=== PATIENT | female | born 1995 | race Caucasian/White ===

== ENCOUNTER 2017-02-07 07:08 | Emergency (ER) | payer OTHER ==
--- NOTE | 2017-02-07 08:01 | RAD ---
HISTORY: Trauma, right thumb injury COMPARISONS: None relevant available at the time of dictation VIEWS: 3, Frontal, lateral, and oblique views of the first digit of the right hand FINDINGS: BONE DENSITY: Normal. BONES: There is no displaced fracture. JOINTS: There is no arthropathy. ALIGNMENT: There is no dislocation. SOFT TISSUES: Unremarkable. OTHER FINDINGS: None. IMPRESSION: NO ACUTE OSSEOUS INJURY. IF SYMPTOMS PERSIST, RECOMMEND REPEAT IMAGING.
--- NOTE | 2017-02-07 08:09 | UC ---
Caitlyn Mosher Thomas, scribed for Kellee Rivera DO on 02/07/17 at 0729 . Upper Extremity HPI - HPI Summary HPI Summary: The pt is a 22 y/o F presenting to [facility] [place] c/o right thumb pain s/p a fall two days ago in which she slipped and fell on her outstretched right hand. The pain had onset immediately after her fall. The pt rates the pain 7/10 at its worst. The pain is aggravated by flexion and is alleviated by rest. There is no pain when the finger is held still. 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 Pt denies elbow pain, forearm pain, wrist pain, pain in any other fingers, F/C/S, CP, abd pain, belly pain, or rashes. She has a prior fracture in her left hand from a fall. - History of Current Complaint Stated Complaint: THUMB INJURY Hx Obtained From: Patient Hx Last Menstrual Period: 01/13/17 Onset/Duration: Sudden Onset, Lasting Days - s/p a fall two days ago, Still Present Severity Currently: Moderate Pain Intensity: 7 Pain Scale Used: 0-10 Numeric Location Of Pain: Is Discrete @ - R thumb Aggravating Factor(s): Flexion Alleviating Factor(s): Rest Associated Signs And Symptoms: Positive: Negative Related History: Similar Episode/Dx As - a left thumb fracture after an earlier fall - Allergies/Home Medications Allergies/Adverse Reactions: Allergies Allergy/AdvReac Type Severity Reaction Status Date / Time No Known Allergies Allergy Verified 02/07/17 07:18 Home Medications: Home Medications Cetirizine* [ZyrTEC 10 MG TAB*] 10 mg PO DAILY 02/07/17 [History Confirmed 02/07] Montelukast Sodium TAB* [Singulair 10 MG TAB*] 10 mg PO DAILY 02/07/17 [History Confirmed 02/07/17] PMH/Surg Hx/FS Hx/Imm Hx Previously Healthy: No - Left thumb fracture Other Cancer History: Leukemia (diagnosed 04/2016) - Surgical History Surgical History: None - Family History Known Family History: Positive: Diabetes - Social History Alcohol Use: Occasionally Substance Use Type: None Smoking Status (MU): Never Smoked Tobacco Review of Systems Constitutional: Other - NEGATIVE: fever Musculoskeletal: Other: - Right thumb pain All Other Systems Reviewed And Are Negative: Yes Physical Exam Triage Information Reviewed: Yes Appearance: Well-Appearing, No Pain Distress, Well-Nourished Vital Signs: Initial Vital Signs Temp 98.4 F 02/07/17 07:12 Pulse 93 02/07/17 07:12 Resp 16 02/07/17 07:12 BP 104/80 02/07/17 07:12 Pulse Ox 100 02/07/17 07:12 Eyes: Positive: Conjunctiva Clear. Negative: Discharge ENT: Positive: Hearing grossly normal. Negative: Muffled/hoarse voice Neck exam: Normal Neck: Positive: Supple Respiratory: Positive: Lungs clear, Normal breath sounds, No respiratory distress, No accessory muscle use Cardiovascular: Positive: RRR, No Murmur Musculoskeletal: Positive: Other: - Tender to palpation on the first metacarpal and proximal phalanx on the right thumb. There is slight swelling over the MCP, distal first metacarpal, and proximal phalanx on the right thumb. Neurological: Positive: Alert, Muscle Tone Normal Psychological Exam: Normal Psychological: Positive: Age Appropriate Behavior Skin Exam: Normal Skin: Positive: Other - Warm, dry, normal color Diagnostics - Radiology XR Thumb Xray Interpretation: No Acute Changes - No acute osseous injury. If symptoms persist, follow up imaging is recommended. Radiology Interpretation Completed By: Radiologist Upper Extremity Course/Dx - Course Course Of Treatment: The pt is a 22 y/o F presenting to [facility] [place] c/o right thumb pain s/p a fall two days ago in which she slipped and fell on her outstretched right hand. The pain had onset immediately after her fall. The pt rates the pain 7/10 at its worst. The pain is aggravated by flexion and is alleviated by rest. There is no pain when the finger is held still. 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 Pt denies elbow pain, forearm pain, wrist pain, pain in any other fingers, F/C/S, CP, abd pain, belly pain, or rashes. She has a prior fracture in her left hand from a fall. Medications reviewed this visit. XR Thumb reveals thumb sprain. [facility] physician has reviewed this radiology report and agrees. Patient is diagnosed with right thumb sprain. A splint was applied to the thumb. Patient is stable and will be discharged home. Patient is agreeable to this plan. - Differential Dx/Diagnosis Provider Diagnoses: Right thumb sprain Discharge - Discharge Plan Condition: Stable Disposition: HOME Patient Education Materials: Splint Care (ED), Finger Sprain (ED) Additional Instructions: REMEMBER SPRAINS HEAL FASTER WITH EARLY AND GENTLE MOBILIZATION. WEAR THE SPINT FOR PROTECTION AND REST FOR LONG YOU FEEL THAT YOU NEED IT, BUT GET YOU THUMB OUT SEVERAL TIMES A DAY. MOVE IT MUCH YOU CAN IN YOUR PAIN FREE RANGE OF MOTION WHILE TAKING BIG BREATHES. IF YOU ARE NOT IMPROVING IN 5-7 DAYS, YOU SHOULD BE RE-EVALUATED FOR OCCULT OR HIDDEN FRACTURE. The documentation as recorded by the Caitlyn dempsey Thomas accurately reflects the service I personally performed and the decisions made by me, Kellee Rivera DO.
== END 2017-02-07 08:04 | disposition home or self-care (01) ==
LOC: UCEAST 07:08
DX: S63.601A Unspecified sprain of right thumb, initial encounter (principal); W01.10XA Fall on same level from slipping, tripping and stumbling with subsequent striking against unspecified object, initial encounter; Y92.9 Unspecified place or not applicable
CPT/HCPCS: 99211; G0463

== ENCOUNTER 2017-02-22 16:45 | Emergency (ER) | payer OTHER ==
--- NOTE | 2017-02-22 17:16 | ED ---
Progress - Progress Note Progress Note: fatigue, sore throat, clotting with menses---pt is worried about return of Leukemia Course/Dx - Diagnoses Provider Diagnoses: Fatigue
[2017-02-22 18:22] LABS: Hematocrit 42 % (35-47); Hemoglobin 13.9 g/dl (12.0-16.0); Mean Corpuscular HGB Conc 34 g/dl (31-36); Mean Corpuscular Hemoglobin 32 pg (27-31); Mean Corpuscular Volume 97 fL (80-97); Mean Platelet Volume 9 um3 (7.4-10.4); Red Blood Count 4.31 10^6/ul (4.0-5.4); Red Cell Distribution Width 13 % (10.5-15); White Blood Count 9.8 10^3/ul (3.5-10.8)
[2017-02-22 18:36] LABS: ALT 7 U/L (7-52); AST 12 U/L (13-39); Albumin 3.9 g/dL (3.2-5.2); Alkaline Phosphatase 59 U/L (34-104); Anion Gap 3 mmol/L (2-11); BUN/Creatinine Ratio 13.7 (8-20); Blood Urea Nitrogen 10 mg/dL (6-24); CO2 Carbon Dioxide 27 mmol/L (22-32); Calcium 8.9 mg/dL (8.6-10.3); Chloride 106 mmol/L (101-111); EGFR African American 129.4 (>60); EGFR Non-African American 100.6 (>60); Globulin 3.1 g/dL (2-4); Glucose 86 mg/dL (70-100); Potassium 4.5 mmol/L (3.5-5.0); Sodium 136 mmol/L (133-145)
--- NOTE | 2017-02-22 21:40 | ED ---
Complex/Multi-Sys Presentation - HPI Summary HPI Summary: 22F presents with fatigue, sore throat, and abnormal menses for past 2 weeks. She states these were the symptoms she had when she had AML. She states she has been in remission since Dec 24. She was feeling better until two weeks ago when symptoms started. She denies any history of strept or mono. no fever. no sinus congestion. no difficulty swallowing. no cough or SOB. She is anxious about having leukemia again. - History Of Current Complaint Chief Complaint: EDGeneral Time Seen by Provider: 02/22/17 21:29 - Allergies/Home Medications Allergies/Adverse Reactions: Allergies Allergy/AdvReac Type Severity Reaction Status Date / Time No Known Allergies Allergy Verified 02/07/17 07:18 PMH/Surg Hx/FS Hx/Imm Hx Endocrine/Hematology History: Denies: Hx Diabetes, Hx Thyroid Disease Cardiovascular History: Denies: Hx Hypertension Respiratory History: Denies: Hx Asthma, Hx Chronic Obstructive Pulmonary Disease (COPD) GI History: Denies: Hx Ulcer - Cancer History Cancer Type, Location and Year: Leukemia, chemo throughout the summer, now in remission. Infectious Disease History: No Infectious Disease History: Denies: Hx Clostridium Difficile, Hx Hepatitis, Hx Human Immunodeficiency Virus (HIV), Hx of Known/Suspected MRSA, Hx Shingles, Hx Tuberculosis, Hx Known/ Suspected VRE, Hx Known/Suspected VRSA, History Other Infectious Disease, Traveled Outside the in Last 30 Days - Family History Known Family History: Positive: Diabetes - Social History Alcohol Use: Occasionally Substance Use Type: Reports: None Smoking Status (MU): Never Smoked Tobacco Review of Systems Negative: Fever Positive: Sore Throat Negative: Chest Pain Negative: Shortness Of Breath Neurological: Other - fatigue All Other Systems Reviewed And Are Negative: Yes Physical Exam Triage Information Reviewed: Yes Vital Signs On Initial Exam: Initial Vitals Temp Pulse Resp BP Pulse Ox 97.1 F 74 20 128/70 100 02/22/17 17:06 02/22/17 17:06 02/22/17 17:06 02/22/17 17:06 02/22/17 17:06 Vital Signs Reviewed: Yes Appearance: Positive: Well-Appearing Skin: Positive: Warm, Dry Head/Face: Positive: Normal Head/Face Inspection Eyes: Positive: Normal, EOMI, DANIELA, Conjunctiva Clear ENT: Positive: Normal ENT inspection, Pharynx normal, TMs normal Neck: Positive: Supple, Nontender, No Lymphadenopathy Respiratory/Lung Sounds: Positive: Clear to Auscultation, Breath Sounds Present Cardiovascular: Positive: Normal, RRR Abdomen Description: Positive: Nontender, Soft Bowel Sounds: Positive: Present Diagnostics - Vital Signs Vital Signs Temp Pulse Resp BP Pulse Ox 02/22/17 19:18 98.4 F 74 16 127/61 100 02/22/17 17:06 97.1 F 74 20 128/70 100 - Laboratory Lab Results: Lab Results 02/22/17 02/22/17 02/22/17 Range/Units 18:12 18:12 18:12 WBC 9.8 (3.5-10.8) 10^3/ul RBC 4.31 (4.0-5.4) 10^6/ul Hgb 13.9 (12.0-16.0) g/dl Hct 42 (35-47) % MCV 97 (80-97) fL MCH 32 H (27-31) pg MCHC 34 (31-36) g/dl RDW 13 (10.5-15) % Plt Count 217 (150-450) 10^3/ul MPV 9 (7.4-10.4) um3 Neut % (Auto) 59.3 (38-83) % Lymph % (Auto) 26.8 (25-47) % [place] % (Auto) 8.3 (1-9) % Eos % (Auto) 4.6 (0-6) % Baso % (Auto) 1.0 (0-2) % Absolute Neuts (auto) 5.8 (1.5-7.7) 10^3/ul Absolute Lymphs (auto) 2.6 (1.0-4.8) 10^3/ul Absolute Monos (auto) 0.8 (0-0.8) 10^3/ul Absolute Eos (auto) 0.5 (0-0.6) 10^3/ul Absolute Basos (auto) 0.1 (0-0.2) 10^3/ul Absolute Nucleated RBC 0.01 10^3/ul Nucleated RBC % 0.1 INR (Anticoag Therapy) 0.89 (0.89-1.11) APTT 30.6 (26.0-36.3) seconds Sodium 136 (133-145) mmol/L Potassium 4.5 (3.5-5.0) mmol/L Chloride 106 (101-111) mmol/L Carbon Dioxide 27 (22-32) mmol/L Anion Gap 3 (2-11) mmol/L BUN 10 (6-24) mg/dL Creatinine 0.73 (0.51-0.95) mg/dL Est GFR ( Amer) 129.4 (>60) Est GFR (Non-Af Amer) 100.6 (>60) BUN/Creatinine Ratio 13.7 (8-20) Glucose 86 (70-100) mg/dL Lactic Acid (0.5-2.0) mmol/L Calcium 8.9 (8.6-10.3) mg/dL Total Bilirubin 0.40 (0.2-1.0) mg/dL AST 12 L (13-39) U/L ALT 7 (7-52) U/L Alkaline Phosphatase 59 (34-104) U/L Total Protein 7.0 (6.4-8.9) g/dL Albumin 3.9 (3.2-5.2) g/dL Globulin 3.1 (2-4) g/dL Albumin/Globulin Ratio 1.3 (1-3) Beta HCG, Quant < 0.60 mIU/mL 02/22/17 Range/Units 18:12 WBC (3.5-10.8) 10^3/ul RBC (4.0-5.4) 10^6/ul Hgb (12.0-16.0) g/dl Hct (35-47) % MCV (80-97) fL MCH (27-31) pg MCHC (31-36) g/dl RDW (10.5-15) % Plt Count (150-450) 10^3/ul MPV (7.4-10.4) um3 Neut % (Auto) (38-83) % Lymph % (Auto) (25-47) % [place] % (Auto) (1-9) % Eos % (Auto) (0-6) % Baso % (Auto) (0-2) % Absolute Neuts (auto) (1.5-7.7) 10^3/ul Absolute Lymphs (auto) (1.0-4.8) 10^3/ul Absolute Monos (auto) (0-0.8) 10^3/ul Absolute Eos (auto) (0-0.6) 10^3/ul Absolute Basos (auto) (0-0.2) 10^3/ul Absolute Nucleated RBC 10^3/ul Nucleated RBC % INR (Anticoag Therapy) (0.89-1.11) APTT (26.0-36.3) seconds Sodium (133-145) mmol/L Potassium (3.5-5.0) mmol/L Chloride (101-111) mmol/L Carbon Dioxide (22-32) mmol/L Anion Gap (2-11) mmol/L BUN (6-24) mg/dL Creatinine (0.51-0.95) mg/dL Est GFR ( Amer) (>60) Est GFR (Non-Af Amer) (>60) BUN/Creatinine Ratio (8-20) Glucose (70-100) mg/dL Lactic Acid 0.7 (0.5-2.0) mmol/L Calcium (8.6-10.3) mg/dL Total Bilirubin (0.2-1.0) mg/dL AST (13-39) U/L ALT (7-52) U/L Alkaline Phosphatase (34-104) U/L Total Protein (6.4-8.9) g/dL Albumin (3.2-5.2) g/dL Globulin (2-4) g/dL Albumin/Globulin Ratio (1-3) Beta HCG, Quant mIU/mL Result Diagrams: 02/22/17 18:12 02/22/17 18:12 Lab Statement: Any lab studies that have been ordered have been reviewed, and results considered in the medical decision making process. Complex Multi-Symp Course/Dx Course Of Treatment: 22F presents with fatigue, sore throat, and abnormal menses for past 2 weeks. She states these were the symptoms she had when she had AML. She states she has been in remission since Dec 24. She was feeling better until two weeks ago when symptoms started. She denies any history of strept or mono. no fever. no sinus congestion. no difficulty swallowing. no cough or SOB. on exam normal PE. labs normal. has dr maldonado and dr allan look at them and agree no reactivation of leukemia based on labs. patient had old labs and they area not similiar to current labs (wbc was low and below normal). strept neg. called patient to inform patient about strept. patient understands and agrees with plan. - Diagnoses Differential Diagnoses/HQI/PQRI: Sepsis, Other - leukemia, strept Provider Diagnoses: Fatigue Discharge - Discharge Plan Condition: Good Disposition: HOME Patient Education Materials: Fatigue (ED) Forms: *School Release Referrals: [facility] PHYSICIAN REFERRAL [Outside] Wanda Huertas MD [Medical Doctor] - Additional Instructions: Follow up with [facility] within 5 days Return to ED if develop any new or worsening symptoms
[2017-02-22 22:51] VITALS: BP 119/64
== END 2017-02-22 22:40 | disposition home or self-care (01) ==
LOC: ED 16:45
DX: R53.83 Other fatigue (principal); J02.9 Acute pharyngitis, unspecified
CPT/HCPCS: 36415; 80053; 83605; 84702; 85025; 85610; 85730; 87651; 99282

== ENCOUNTER 2017-09-10 13:16 | Emergency (ER) | payer OTHER ==
[2017-09-10 14:51] LABS: ABS Basophils 0.1 10^3/ul (0-0.2); ABS Eosinophils 0 10^3/ul (0-0.6); ABS Lymphocytes 1.5 10^3/ul (1.0-4.8); ABS Monocytes 0.9 10^3/ul (0-0.8); ABS Neutrophils 13.1 10^3/ul (1.5-7.7); ABS Nucleated RBC 0 10^3/ul; Eosinophil % 0.1 % (0-6); Hematocrit 38 % (35-47); Hemoglobin 12.8 g/dl (12.0-16.0); Lymphocyte % 9.6 % (25-47); Mean Corpuscular HGB Conc 33 g/dl (31-36); Mean Corpuscular Hemoglobin 30 pg (27-31); Mean Corpuscular Volume 90 fL (80-97); Mean Platelet Volume 8.9 um3 (7.4-10.4); Nucleated Red Blood Cells % 0; Platelet Count 160 10^3/ul (150-450); Red Blood Count 4.24 10^6/ul (4.0-5.4); Red Cell Distribution Width 13 % (10.5-15); White Blood Count 15.6 10^3/ul (3.5-10.8)
[2017-09-10 15:08] LABS: EGFR Non-African American 81.1 (>60)
[2017-09-10] MEDS ORDERED: NS 0.9% 1000 ML* 1,000 ML IV ONE ×2 (15:40→19:03)
[2017-09-10] MEDS ORDERED: Midazolam* 1 MG/ML 5 ML VIAL (5 MG) ONE (17:15)
[2017-09-10] MEDS ORDERED: Acetaminophen TAB* 325 MG PO ONE (17:58)
[2017-09-10] MEDS ORDERED: Ibuprofen TAB* 600 MG PO ONE (19:05)
[2017-09-10] MEDS ORDERED: diPHENhydraMINE IV* 50 MG/ML 1 ml VIAL (BENADRYL) IV ONE (19:40)
[2017-09-10] MEDS ORDERED: Metoclopramide IV* 5 MG/ML 2 ML VIAL IV ONE (19:40)
[2017-09-10 20:54] VITALS: BP 112/66
--- NOTE | 2017-09-11 05:46 | ED ---
Karyn Mosher Emily, scribed for Troy Monson MD on 09/11/17 at 0441 . Progress - Progress Note Progress Note: I assumed care from outgoing ER physician. The patient had a lumbar puncture which is found to be negative. She still had some headache. This had largely resolved by the time I evaluated her. Likely viral source. Flu negative. No meningitis. Patient now feeling a lot better and requesting to be discharged home. Course/Dx - Course Course Of Treatment: Pt reported headache, some neck discomfort, and fever. Spinal tap which was normal. She did not have a urine drawn. She was treated here with relief and was asking to go home upon reevaluation. She is going to follow up with [facility]. - Diagnoses Provider Diagnoses: Viral syndrome Discharge - Sign-Out/Discharge Documenting (check all that apply): Discharge/Admit/Transfer, Receiving Sign-Out Receiving patient FROM: Mal Liu - Discharge Plan Condition: Good Disposition: HOME Prescriptions: Promethazine TAB* [Phenergan Tab*] 25 mg PO Q6H PRN #10 tab PRN Reason: headache/nausea Patient Education Materials: Viral Syndrome (ED) Referrals: [facility] [Z.BUSINESS, APPLICATION, OTHER] - Additional Instructions: Stay well-hydrated. Tylenol, ibuprofen as needed for fever. Return with persistent vomiting, severe headache, worse or other concerns. - Billing Disposition and Condition Condition: GOOD Disposition: HOME The documentation as recorded by the maria estheribKaryn huddleston Emily accurately reflects the service I personally performed and the decisions made by me, Troy Monson MD.
--- NOTE | 2017-09-12 10:17 | ED ---
Lynda Mosher Jason, scribed for Mal Liu MD on 09/10/17 at 1549 . HPI Febrile Illness - HPI Summary HPI Summary: This patient is a 22 year old F presenting to [facility] with a chief complaint of a fever since 0800 2 days ago. She states that she went to an on campus health center, which gave her Tylenol and told her to report to [facility]. The patient rates the pain 4/10 in severity. Symptoms aggravated by nothing. Symptoms alleviated by Tylenol. Patient reports fevers, headache, and muscular aches. She includes she has a history of leukemia in remission. - History of Current Complaint Chief Complaint: EDFluSymptoms Time Seen by Provider: 09/10/17 15:11 Hx Obtained From: Patient Hx Last Menstrual Period: 01/13/17 Onset/Duration: Started Days Ago - 2 days, Still Present Timing: Constant Pain Intensity: 4 Pain Scale Used: 0-10 Numeric Aggravating Factors: Nothing Alleviating Factors: OTC Medicine - Tylenol Associated Signs and Symptoms: Other: - fevers, headache, and muscular aches - Allergy/Home Medications Allergies/Adverse Reactions: Allergies Allergy/AdvReac Type Severity Reaction Status Date / Time No Known Allergies Allergy Verified 09/10/17 13:31 Home Medications: Home Medications Acetaminophen TAB* [Tylenol TAB*] 650 mg PO Q6H PRN 09/10/17 [History Confirmed 09/10/17] Albuterol HFA INHALER* [Ventolin HFA Inhaler*] 1 puff INH Q6H PRN 09/10/17 [ History Confirmed 09/10/17] Cetirizine HCl [All Day Allergy] 10 mg PO BEDTIME 09/10/17 [History Confirmed ] PMH/Surg Hx/FS Hx/Imm Hx Previously Healthy: No Endocrine/Hematology History: Denies: Hx Diabetes, Hx Thyroid Disease Cardiovascular History: Denies: Hx Hypertension Respiratory History: Denies: Hx Asthma, Hx Chronic Obstructive Pulmonary Disease (COPD) GI History: Denies: Hx Ulcer - Cancer History Cancer Type, Location and Year: Leukemia, chemo throughout the summer, now in remission. Infectious Disease History: No Infectious Disease History: Denies: Hx Clostridium Difficile, Hx Hepatitis, Hx Human Immunodeficiency Virus (HIV), Hx of Known/Suspected MRSA, Hx Shingles, Hx Tuberculosis, Hx Known/ Suspected VRE, Hx Known/Suspected VRSA, History Other Infectious Disease, Traveled Outside the [place] in Last 30 Days - Family History Known Family History: Positive: Diabetes - Social History Alcohol Use: Occasionally Substance Use Type: Reports: None Smoking Status (MU): Never Smoked Tobacco Review of Systems Positive: Fever Positive: Myalgia Positive: Headache All Other Systems Reviewed And Are Negative: Yes Physical Exam - Summary Physical Exam Summary: GENERAL: Patient is a well developed and nourished female who is lying comfortable in the stretcher. Patient is not in any acute respiratory distress. HEAD AND FACE: Normocephalic EYES: PERRLA, EOMI x 2. EARS: Hearing grossly intact. MOUTH: Oropharynx within normal limits. NECK: Supple, trachea is midline, no adenopathy, no JVD, no carotid bruit. CHEST: Symmetric, no tenderness at palpation LUNGS: Clear to auscultation bilaterally. No wheezing or crackles. CVS: Regular rate and rhythm, S1 and S2 present, no murmurs or gallops appreciated. ABDOMEN: Soft, non-tender. Bowel sounds are normal. No abdominal abnormal pulsations. EXTREMITIES: Full ROM in all major joints, no edema, no cyanosis or clubbing. NEURO: Alert and oriented x 3. No acute neurological deficits. Speech is normal and follows commands. SKIN: Dry and warm Triage Information Reviewed: Yes Vital Signs On Initial Exam: Initial Vitals Temp Pulse Resp BP Pulse Ox 98.7 F 95 16 123/77 98 09/10/17 13:27 09/10/17 13:27 09/10/17 13:27 09/10/17 13:27 09/10/17 13:27 Vital Signs Reviewed: Yes Diagnostics - Vital Signs Vital Signs Temp Pulse Resp BP Pulse Ox 09/10/17 13:27 98.7 F 95 16 123/77 98 - Laboratory Lab Results: Lab Results 09/10/17 09/10/17 09/10/17 Range/Units 14:45 14:45 15:11 WBC 15.6 H (3.5-10.8) 10^3/ul RBC 4.24 (4.0-5.4) 10^6/ul Hgb 12.8 (12.0-16.0) g/dl Hct 38 (35-47) % MCV 90 (80-97) fL MCH 30 (27-31) pg MCHC 33 (31-36) g/dl RDW 13 (10.5-15) % Plt Count 160 (150-450) 10^3/ul MPV 8.9 (7.4-10.4) um3 Neut % (Auto) 83.9 H (38-83) % Lymph % (Auto) 9.6 L (25-47) % [place] % (Auto) 5.9 (0-7) % Eos % (Auto) 0.1 (0-6) % Baso % (Auto) 0.5 (0-2) % Absolute Neuts (auto) 13.1 H (1.5-7.7) 10^3/ul Absolute Lymphs (auto) 1.5 (1.0-4.8) 10^3/ul Absolute Monos (auto) 0.9 H (0-0.8) 10^3/ul Absolute Eos (auto) 0 (0-0.6) 10^3/ul Absolute Basos (auto) 0.1 (0-0.2) 10^3/ul Absolute Nucleated RBC 0 10^3/ul Nucleated RBC % 0 Sodium 134 L (139-145) mmol/L Potassium 3.5 (3.5-5.0) mmol/L Chloride 102 (101-111) mmol/L Carbon Dioxide 25 (22-32) mmol/L Anion Gap 7 (2-11) mmol/L BUN 5 L (6-24) mg/dL Creatinine 0.88 (0.51-0.95) mg/dL Est GFR ( Amer) 104.3 (>60) Est GFR (Non-Af Amer) 81.1 (>60) BUN/Creatinine Ratio 5.7 L (8-20) Glucose 151 H (70-100) mg/dL Calcium 9.0 (8.6-10.3) mg/dL Beta HCG, Quant < 0.60 mIU/mL Influenza A (Rapid) (Negative) Influenza B (Rapid) (Negative) Group A Strep Rapid Negative (Negative) 09/10/17 Range/Units 15:14 WBC (3.5-10.8) 10^3/ul RBC (4.0-5.4) 10^6/ul Hgb (12.0-16.0) g/dl Hct (35-47) % MCV (80-97) fL MCH (27-31) pg MCHC (31-36) g/dl RDW (10.5-15) % Plt Count (150-450) 10^3/ul MPV (7.4-10.4) um3 Neut % (Auto) (38-83) % Lymph % (Auto) (25-47) % [place] % (Auto) (0-7) % Eos % (Auto) (0-6) % Baso % (Auto) (0-2) % Absolute Neuts (auto) (1.5-7.7) 10^3/ul Absolute Lymphs (auto) (1.0-4.8) 10^3/ul Absolute Monos (auto) (0-0.8) 10^3/ul Absolute Eos (auto) (0-0.6) 10^3/ul Absolute Basos (auto) (0-0.2) 10^3/ul Absolute Nucleated RBC 10^3/ul Nucleated RBC % Sodium (139-145) mmol/L Potassium (3.5-5.0) mmol/L Chloride (101-111) mmol/L Carbon Dioxide (22-32) mmol/L Anion Gap (2-11) mmol/L BUN (6-24) mg/dL Creatinine (0.51-0.95) mg/dL Est GFR ( Amer) (>60) Est GFR (Non-Af Amer) (>60) BUN/Creatinine Ratio (8-20) Glucose (70-100) mg/dL Calcium (8.6-10.3) mg/dL Beta HCG, Quant mIU/mL Influenza A (Rapid) Negative (Negative) Influenza B (Rapid) Negative (Negative) Group A Strep Rapid (Negative) Result Diagrams: 09/10/17 14:45 09/10/17 14:45 Lab Statement: Any lab studies that have been ordered have been reviewed, and results considered in the medical decision making process. Re-Evaluation - Re-Evaluation First Eval Re-Evaluation Time: 15:45 Change: Unchanged Comment: The patient was informed about the negative rapid flu and strep test results and about the concern for meningitis. To rule out meningitis a lumbar puncture is needed and was suggested to the patient. The patient was refusing the lumbar puncture and says if it has to be done she would prefer for it to be performed by a "Specialist". Second Eval Re-Evaluation Time: 16:35 Change: Unchanged Comment: The patient has agreed to receive a lumbar puncture. Dr. Luna ( Anesthesiologist) was consulted and agreed to perform the lumbar puncture. Third Eval Re-Evaluation Time: 17:55 Change: Unchanged Comment: Dr. Luna performed the lumbar puncture. Course/Dx - Course Assessment/Plan: This patient is a 22 year old F presenting to [facility] with a chief complaint of a fever since [address] Luna performed a spinal tap per patient's request. CFS shows a normal WBC and is not concerning for any form of meningitis. Patient is still febrile so she will be administered another liter of fluid. Patient is signout out to Dr. Monson, pending re-evaluation. - Diagnoses Provider Diagnoses: Viral syndrome Discharge - Sign-Out/Discharge Documenting (check all that apply): Sign-Out Patient Signing out patient TO: Troy Monson Receiving patient FROM: Mal Liu - Discharge Plan Condition: Good Disposition: HOME Prescriptions: Promethazine TAB* [Phenergan Tab*] 25 mg PO Q6H PRN #10 tab PRN Reason: headache/nausea Patient Education Materials: Viral Syndrome (ED) Referrals: [facility] [Z.BUSINESS, APPLICATION, OTHER] - Additional Instructions: Stay well-hydrated. Tylenol, ibuprofen as needed for fever. Return with persistent vomiting, severe headache, worse or other concerns. The documentation as recorded by the Lynda dempsey Jason accurately reflects the service I personally performed and the decisions made by , Mal Liu MD.
[2017-09-13 14:40] LABS: CSF VDRL Negative (Negative)
== END 2017-09-10 20:54 | disposition home or self-care (01) ==
LOC: ED 13:16
DX: B34.9 Viral infection, unspecified (principal); C95.91 Leukemia, unspecified, in remission; Z32.02 Encounter for pregnancy test, result negative
CPT/HCPCS: 36415; 62270; 80048; 82945; 84157; 84702; 85025; 86592; 86788; 86789; 87070; 87205; 87502; 87651; 87798; 87899; 89051; 96361; 96374; 96375; 99283; A9270-GY; J1200; J2250; J2765